=== PATIENT | female | born 1985 | race Two or more races ===

== ENCOUNTER → 2020-02-16 | Day surgery (SDC) | payer OTHER | END | disposition home or self-care (01) | LOC: ADM 02-09 07:45 → CIR.AMB 07:45 | PROVIDERS: ATTEND Obstetrics & Gynecology | DX: D07.1 Carcinoma in situ of vulva (principal); Z20.828 Contact with and (suspected) exposure to other viral communicable diseases ==

== ENCOUNTER 2020-04-12 09:30 | Inpatient (IN) | payer OTHER | END 2020-04-22 11:43 | disposition home or self-care (01) | DRG 743 | LOC: SURH 04-19 08:30 → SURG-SUITE 04-19 10:46 → O/R 04-19 10:46 → SURG-SUITE 04-20 00:26 | PROVIDERS: ADMIT Obstetrics & Gynecology; ATTEND Obstetrics & Gynecology | PROC: 0UT70ZZ Resection of Bilateral Fallopian Tubes, Open Approach (ICD-10-PCS; 2020-04-19) | PROC: 0UT90ZZ Resection of Uterus, Open Approach (ICD-10-PCS; principal; 2020-04-19 08:30) | DX: N72 Inflammatory disease of cervix uteri (principal); N83.291 Other ovarian cyst, right side; N83.292 Other ovarian cyst, left side; Z20.828 Contact with and (suspected) exposure to other viral communicable diseases ==

== ENCOUNTER 2020-04-18 14:23 | Outpatient (CLI) | payer OTHER | END 2020-04-18 14:33 | disposition home or self-care (01) | LOC: RAD 14:23 | PROVIDERS: ATTEND Internal Medicine | DX: Z01.811 Encounter for preprocedural respiratory examination (principal) ==